=== PATIENT | male | born 1980 | race Caucasian/White ===

== ENCOUNTER 2025-01-10 11:00 | Outpatient (CLI) | payer OTHER, SELFPAY ==
--- OUTSIDE RECORDS SUMMARY | 2025-01-10 12:41 | XMS_ITS | Clinical Summary ---
Author Organization [facility] Address [address] [place] [address] Phone Care Team Providers Care Florist Name Role Phone Gayle Bell Primary Care Provider [phone] Allergies No known active allergies Medications No known medications Immunizations Immunization Administration Dates Next Due TDAP Vaccine 09/28/2016 Social History Tobacco Use Types Packs/Day Years Used Date Smoking Tobacco: Every Day Cigarettes Sex and Gender Information Value Date Recorded Sex Assigned at Not on file Legal Sex Male 1:50 PM CDT Gender Identity Not on file Sexual Orientation Not on file Last Filed Vital Signs Vital Sign Reading Time Taken Comments Blood Pressure 137/67 09/28/2016 1:53 PM CDT Pulse 80 09/28/2016 1:51 PM CDT Temperature 36.4 C (97.5 F) 09/28/2016 1:51 PM CDT Respiratory Rate 12 09/28/2016 1:51 PM CDT Oxygen Saturation 98% 09/28/2016 1:51 PM CDT Inhaled Oxygen Concentration - - Weight 74.8 kg (165 lb) 09/28/2016 1:51 PM CDT Height 175.3 cm (5' 9) 09/28/2016 1:51 PM CDT Body Mass Index 24.37 09/28/2016 1:51 PM CDT Plan of Treatment [place] [address] [facility] Care Teams Florist Relationship Specialty Start Date End Date Gayle Bell PA PCP - General Family Medicine 09/28/16
[2025-01-10 13:14] LABS: Hematocrit 53.7 % (42.0-52.0); Hemoglobin 18.1 g/dL (14.0-18.0); Immature Granulocyte Percent A 0.9 % (0-0.5); Lymphocytes Absolute Auto 1.99 K/mm3 (0.9-3.2); Mean Corpuscular HGB Conc 33.7 g/dl (32-36); Mean Corpuscular Hemoglobin 32.2 pg (26-34); Mean Corpuscular Volume 95.6 fl (80-100); Nucleated Red Blood Cells Absolute Auto 0.000 K/mm3 (0.0-0.012); Nucleated Red Blood Cells Perc 0.0 % (0.0-0.2); Platelet Count Result 217 k/mm3 (150-375); Red Blood Count 5.62 M/mm3 (4.6-6.20); White Blood Count 10.9 K/mm3 (4.5-10.0)
[2025-01-10 13:20] LABS: Alanine Aminotransferase 20 U/L (6-50); Albumin Level 4.2 g/dL (3.5-5.1); Alkaline Phosphatase 63 U/L (38-126); Anion Gap 6 mmol/L (4-12); Aspartate Amino Transferase 69 U/L (17-59); Bilirubin,Total 0.8 mg/dL (0.2-1.3); Blood Urea Nitrogen 11 mg/dL (9-20); Calcium 9.2 mg/dL (8.4-10.2); Carbon Dioxide 28 mmol/L (22-30); Chloride 103 mmol/L (98-107); Cholesterol 225 mg/dL (0-200); Estimated Glomerular Filt Rate > 60; Glucose 100 mg/dL (65-110); HDL Direct 70 mg/dL; Potassium 4.3 mmol/L (3.4-5.0); Sodium 137 mmol/L (137-145); Total Protein 7.0 g/dL (6.3-8.2); Triglycerides 74 mg/dL (<150)
[2025-01-10 13:57] LABS: Prostate Specific Antigen 2.9 ng/mL (< OR = 4.0)
== END 2025-01-10 11:01 | disposition home or self-care (01) ==
LOC: ANHGOSHLAB 11:01
PROVIDERS: PCP Internal Medicine; Visit Provider Internal Medicine
DX: E29.1 Testicular hypofunction (principal); Z79.890 Hormone replacement therapy; Z13.220 Encounter for screening for lipoid disorders; Z13.29 Encounter for screening for other suspected endocrine disorder; Z13.0 Encounter for screening for diseases of the blood and blood-forming organs and certain disorders involving the immune mechanism; Z13.228 Encounter for screening for other metabolic disorders
CPT/HCPCS: 36415; 80053; 80061; 82172; 84153; 85025; G0103